=== PATIENT | male | born 1960 | race Caucasian/White ===

== ENCOUNTER → 2018-03-18 | Outpatient (CLI) | payer BC ==
[~2018-03-18] MED LIST: EASIVENT CHAMBE1 KIT INH; PREDNISONE20 M1 PO; PROVENTIL0.09 MG/A1 INH; SUDAFED 12 HOU120 MG PO
--- NOTE | ~2018-03-18 | EKG ---
[place], [place] ELECTROCARDIOGRAM REPORT NAME: VINAY REYES UNIT #: [id number] ROOM: DOCTOR: EPIPHANY DRAFT REPORT BIRTHDATE: [birth year] [facility] Test Date: 2018-03-18 Test Time: 10:08:50 Pat Name: VINAY REYES Department: Room: Gender: Peg Driver: : 1960 Requested By: LEONARDA VILLALTA Order Number: [id number] Reading MD: Ernesto Carrillo MD Measurements Intervals [place] Rate: 67 P: 60 [place]: 127 QRS: 30 QRSD: 82 T: 49 QT: 352 QTc: 372 Interpretive Statements Sinus rhythm Electronically Signed On 03-18-2018 11:15:39 PDT by Ernesto Carrillo MD CM:EKGRPT:ELECTROCARDIOGRAM REPORT [id number] LEONARDA VILLALTA MD EPIPHQUE DRAFT REPORT LEONARDA VILLALTA MD
== END | disposition home or self-care (01) ==
LOC: LAB 07:35 → RESCLI 07:35
DX: Z12.5 Encounter for screening for malignant neoplasm of prostate (principal)

== ENCOUNTER → 2018-12-09 | Outpatient (CLI) | payer BC | END | disposition home or self-care (01) | LOC: RESCLI 01:08 | DX: J45.909 Unspecified asthma, uncomplicated (principal); E55.9 Vitamin D deficiency, unspecified; N52.8 Other male erectile dysfunction; R63.5 Abnormal weight gain; L02.92 Furuncle, unspecified; Z79.899 Other long term (current) drug therapy; Z88.8 Allergy status to other drugs, medicaments and biological substances ==

== ENCOUNTER 2021-04-14 13:34 | Emergency (ER) | payer BC ==
[~2021-04-14] VITALS: Ht 167.6 cm; Wt 77.1 kg
[2021-04-14] MEDS ORDERED: POLYSPORIN OINT15 GM T ×2 (15:41→15:42)
[2021-04-14] MEDS ORDERED: SEPTDS PO ×2 (15:41→15:42)
== END 2021-04-14 16:15 | disposition home or self-care (01) ==
LOC: ED 13:34
DX: L02.512 Cutaneous abscess of left hand (principal)

== ENCOUNTER → 2021-04-22 | Outpatient (CLI) | payer BC ==
[~2021-04-22] MED LIST changes: +POLYSPORIN OINT15 GM T; +SEPTDS PO
== END | disposition home or self-care (01) ==
LOC: RESCLI 00:33
PROVIDERS: ATTEND Internal Medicine
DX: N52.8 Other male erectile dysfunction (principal); Z00.00 Encounter for general adult medical examination without abnormal findings; I10 Essential (primary) hypertension; Z79.899 Other long term (current) drug therapy; J45.909 Unspecified asthma, uncomplicated